=== PATIENT | male | born 1980 | race Caucasian/White ===

== ENCOUNTER 2020-07-07 19:35 | Emergency (ER) | payer MEDICAID, SELFPAY ==
[~2020-07-07] VITALS: Ht 177.8 cm; Wt 88.6 kg
[2020-07-07 22:04] VITALS: BP 160/91
== END 2020-07-07 22:36 | disposition home or self-care (01) ==
LOC: M ED 19:35
DX: F43.0 Acute stress reaction (principal)

== ENCOUNTER 2020-07-10 04:17 | Inpatient (IN) | payer MEDICAID, SELFPAY ==
[~2020-07-10] VITALS: Ht 177.8 cm; Wt 85.6 kg
[2020-07-10] MEDS ORDERED: LORazepam 2 MG TAB PO STA (04:37)
[2020-07-10] MEDS ORDERED: OLANZapine ORAL DISINTEGRATING TAB 5MG PO ONE (04:40)
[2020-07-10 05:01] LABS: HEMATOCRIT 45.9 % (42.0-52.0); HEMOGLOBIN 15.3 g/dl (13.5-17.5); MEAN CORPUSCULAR HEMOGLOBIN 28.3 pg (27.0-33.0); MEAN CORPUSCULAR HGB CONC 33.3 g/dl (32.0-36.5); PLATELET COUNT, AUTOMATED 311 10^3/uL (150-450); WHITE BLOOD COUNT 7.6 10^3/uL (4.0-10.0)
[2020-07-10 05:19] LABS: AMPHETAMINES LEVEL URINE NEGATIVE (NEGATIVE); BARBITURATES URINE NEGATIVE (NEGATIVE); BENZODIAZEPINES URINE POSITIVE (NEGATIVE); CANNABINOIDS URINE NEGATIVE (NEGATIVE); COCAINE METABOLITE URINE NEGATIVE (NEGATIVE); METHADONE URINE NEGATIVE (NEGATIVE); OPIATES URINE NEGATIVE (NEGATIVE); PHENCYCLIDINE URINE NEGATIVE (NEGATIVE)
[2020-07-10] MEDS ORDERED: diphenhydrAMINE 50MG/ML VIAL (J1200) IM ONE (05:20)
[2020-07-10] MEDS ORDERED: HALOPERIDOL 5MG/ML VIAL (J1630 PER 1) IM ONE (05:20)
[2020-07-10] MEDS ORDERED: LORazepam 2 MG/ML VIAL IM ONE (05:20)
[2020-07-10 05:27] LABS: ACETAMINOPHEN LEVEL < 2.0 UG/ML (10.0-30.0); ALBUMIN 4.3 GM/DL (3.2-5.2); ALT/SGPT 60 U/L (12-78); BILIRUBIN,DIRECT 0.3 MG/DL (0.0-0.2); BLOOD UREA NITROGEN 22 MG/DL (7-18); CALCIUM LEVEL 8.9 MG/DL (8.5-10.1); CARBON DIOXIDE LEVEL 27 MEQ/L (21-32); CHLORIDE LEVEL 109 MEQ/L (98-107); CREATININE FOR GFR 0.92 MG/DL (0.70-1.30); ETHYL ALCOHOL (ETHANOL) < 0.003 % (0.000-0.010); GLOMERULAR FILTRATION RATE > 60.0 (>60); GLUCOSE, FASTING 106 MG/DL (70-100); POTASSIUM SERUM 3.6 MEQ/L (3.5-5.1); SALICYLATE LEVEL < 1.7 MG/DL (5.0-30.0); SODIUM LEVEL 143 MEQ/L (136-145); THYROID STIMULATING HORMONE 0.817 uIU/ML (0.358-3.740); TOTAL PROTEIN 7.5 GM/DL (6.4-8.2)
--- NOTE | 2020-07-10 07:45 | REPVR ---
PROCEDURE INFORMATION: Exam: CT Head Without Contrast Exam date and time: 07/10/2020 7:32 AM Age: 39 years old Clinical indication: Injury or trauma; Fall; Blunt trauma (contusions or hematomas); Additional info: Possible trauma, psychosis TECHNIQUE: Imaging protocol: Computed tomography of the head without contrast. Radiation optimization: All CT scans at this facility use at least one of these dose optimization techniques: automated exposure control; mA and/or kV adjustment per patient size (includes targeted exams where dose is matched to clinical indication); or iterative reconstruction. COMPARISON: No relevant prior studies available. FINDINGS: Brain: Normal. No hemorrhage. Unremarkable white matter. No mass effect. Cerebral ventricles: No ventriculomegaly. Bones/joints: Unremarkable. No acute fracture. Paranasal sinuses: Visualized sinuses are unremarkable. No fluid levels. Mastoid air cells: Visualized mastoid air cells are well aerated. Soft tissues: Unremarkable. IMPRESSION: No acute intracranial abnormality. Electronically signed by: Patricia Waldrop On 07/10/2020 07:45:32 AM
[2020-07-10] MEDS: NICOTINE 21MG/24HR 1 EA TRANSDERMAL TD SCH (09:00)
[2020-07-10] MEDS ORDERED: traZODone 50 MG TAB PO PRN (12:50)
[2020-07-10] MEDS ORDERED: MAALOX 30 ML SUSP *UDC PO PRN (12:50)
[2020-07-10] MEDS ORDERED: MOM 30ML SUSPENSION UDC PO PRN (12:50)
[2020-07-10] MEDS ORDERED: IBUPROFEN 400MG TAB PO PRN (12:50)
[2020-07-10 12:56] LABS: RSV AMPLIFICATION NEGATIVE (NEGATIVE)
[2020-07-10 14:47] VITALS: BP 131/80
[2020-07-11] MEDS ORDERED: ChlorproMAZINE 100 MG TABLET PO ONE (03:00)
[2020-07-11] MEDS: OLANZapine 5 MG TAB PO SCH ×2 (09:00→20:31)
[2020-07-11] MEDS: NICOTINE 21MG/24HR 1 EA TRANSDERMAL TD SCH (09:00)
[2020-07-11] MEDS ORDERED: OLANZapine ORAL DISINTEGRATING TAB 5MG PO PRN (10:20)
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
[2020-07-11 17:24] VITALS: BP 145/81
--- NOTE | 2020-07-11 17:51 | HPE ---
HISTORY AND PHYSICAL DATE OF ADMISSION: 07/10/2020 Percy Briggs is seen for an inpatient mental health hospitalist-generated history and physical. He denies any significant past medical history. He says "I'm healthy as a horse." "I never see a doctor." PAST MEDICAL HISTORY: Essentially negative for anything except psychiatric illness. MEDICATIONS: Denies any outpatient medicines. ALLERGIES: None known. SOCIAL HISTORY: Denies alcohol or tobacco. FAMILY HISTORY: Father accidentally in a work-related accident. Mother has hypertension. REVIEW OF SYSTEMS: No chest pain, palpitations, epistaxis, rectal bleeding, urinary bleeding. PHYSICAL EXAMINATION: VITAL SIGNS: Per flow sheet. HEENT: Unremarkable. Thyroid nonpalpable. LUNGS: Clear. HEART: Regular without murmur. ABDOMEN: Soft, nontender. No masses. No peripheral edema. Normal coordination and gait, reflexes, and strength. LABORATORY DATA: CBC, CMP unremarkable. IMPRESSION: Inpatient mental health unit history and physical with no presenting medical problems. Please feel free to contact the hospitalist group should this patient develop a medical problem.
[2020-07-11] MEDS ORDERED: diphenhydrAMINE 50MG/ML VIAL (J1200) IM STA ×2 (22:06→22:34)
[2020-07-11] MEDS ORDERED: HALOPERIDOL 5MG/ML VIAL (J1630 PER 1) IM STA ×2 (22:06→22:34)
[2020-07-11] MEDS ORDERED: LORazepam 2 MG/ML VIAL IM STA ×2 (22:06→22:34)
[2020-07-11] MEDS ORDERED: HALOPERIDOL 5MG/ML VIAL (J1630 PER 1) As Ordered ONE (22:10)
[2020-07-11] MEDS ORDERED: diphenhydrAMINE 50MG/ML VIAL (J1200) As Ordered ONE (22:11)
[2020-07-11] MEDS ORDERED: LORazepam 2 MG/ML VIAL As Ordered ONE (22:12)
--- NOTE | 2020-07-11 22:23 | IPNPDOC ---
Date Seen The patient was seen on 07/11/20. Progress Note SUBJECTIVE: CODE 25 was called. Pt couldn't sleep, became agitated and started yelling. He could not be re-directed, and was restrained. After 4point restraints were done, pt stopped yelling. He denied any medical complaints-no sob, chest pain, pressure, n/v/abd pain. OBJECTIVE PHYSICAL EXAMINATION: VITAL SIGNS: Please see below. GENERAL: agitated, manic, in 4points restraints HEENT: moist mm CARDIOVASCULAR: S1S2 sinus tachycardia no murmurs RESPIRATORY: CTAB AEBE ABDOMINAL: +BS soft NT ND EXTREMITIES: no edema PSYCHOLOGICAL: agitated, manic LABORATORY DATA, IMAGING STUDIES, MICROBIOLOGY: Please see below. ASSESSMENT AND PLAN:39 y/o w bipolar disorder became agitated, started yelling, and could not be re-directed. medical ROS was negative. Agitation/Bipolar/manic episode -PRN haldol. pt is a danger to himself and staff and could not be re-directed. -sitter. VS, I&O, 24H, Fishbone Vital Signs/I&O Vital Signs Date Time Temp Pulse Resp B/P (MAP) Pulse Ox O2 Delivery O2 Flow Rate FiO2 07/11/20 17:24 98.2 77 20 145/81 (102) 07/10/20 14:47 Room Air 07/10/20 08:00 97 ROSALINE FOFANA MD Jul 11, 2020 22:23
[2020-07-11 23:00] VITALS: BP 139/63
[2020-07-11 23:15] VITALS: BP 107/58
[2020-07-11 23:30] VITALS: BP 111/58
[2020-07-11 23:45] VITALS: BP 114/62
[2020-07-12] VITALS (7 sets, daily range): BP systolic 90–115; BP diastolic 50–60
[2020-07-12] MEDS: haloperidoL 5 MG TAB PO SCH ×3 (09:00→21:00)
[2020-07-12] MEDS: NICOTINE 21MG/24HR 1 EA TRANSDERMAL TD SCH (09:00)
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
[2020-07-13 06:35] VITALS: BP 118/63
[2020-07-13] MEDS: haloperidoL 5 MG TAB PO SCH ×3 (09:00→20:44)
[2020-07-13] MEDS: NICOTINE 21MG/24HR 1 EA TRANSDERMAL TD SCH (09:00)
[2020-07-13 16:21] VITALS: BP 124/77
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
[2020-07-14 06:45] VITALS: BP 127/62
[2020-07-14] MEDS: NICOTINE 21MG/24HR 1 EA TRANSDERMAL TD SCH (08:35)
[2020-07-14] MEDS: haloperidoL 5 MG TAB PO SCH ×3 (08:35→20:03)
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
[2020-07-14 16:21] VITALS: BP 130/72
[2020-07-15 07:05] VITALS: BP 128/74
[2020-07-15] MEDS: NICOTINE 21MG/24HR 1 EA TRANSDERMAL TD SCH (08:09)
[2020-07-15] MEDS: haloperidoL 5 MG TAB PO SCH (08:09)
[2020-07-15] MEDS ORDERED: BENZ0.5T23 PO (10:09)
[2020-07-15] MEDS ORDERED: HALO10TA20 PO (10:09)
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
== END 2020-07-15 14:25 | disposition home or self-care (01) | DRG 754 ==
LOC: M ED 04:17 → M ED INP 12:49 → M PSY 14:38
PROVIDERS: ADMIT Psychiatry & Neurology Child & Adolescent Psychiatry; ATTEND Psychiatry & Neurology Psychiatry
DX: F32.9 Major depressive disorder, single episode, unspecified (principal); R45.850 Homicidal ideations; G47.00 Insomnia, unspecified